=== PATIENT | female | born 1945 | race Caucasian/White ===

== ENCOUNTER 2017-05-05 08:33 | Outpatient (CLI) | payer MEDICARE ==
--- NOTE | 2017-05-05 11:34 | RAD ---
CERVICAL SPINE SERIES 6 VIEWS WITH FLEXION AND EXTENSION: Date: 05/05/17 HISTORY: neck pain. FINDINGS: The vertebral bodies are normal in height. Degenerative osteophytes are seen along the course of the lower cervical spine. There is disc narrowing at the C6-7 level. In flexion, there is very minimal anterolisthesis of C4 on C5 and C3 on C4, which reduces in extension. IMPRESSION: Arthritic changes of the spine as discussed above. POS: [facility]
--- NOTE | 2017-05-05 13:40 | MRI ---
MRI CERVICAL SPINE WITHOUT CONTRAST: Date: 05/05/17 HISTORY: Cervical radiculopathy. Neck pain. Radiation down left arm. COMPARISON: None. TECHNIQUE: Cervical spine MRI is performed without contrast administration. Multisequential, multiplanar imagin g is performed. FINDINGS: Appropriate T1 marrow signal intensity of the cervical vertebra. Cervical spine vertebral body heigh t is maintained. No fracture. No significant STIR hyperintensities to suggest edema or ligamentous i njury. Visualized brain parenchyma, cervicomedullary junction, cervical cord, and the upper thoracic cord h ave a normal size and signal intensity. C2-C3: No significant disc osteophyte complex. No significant central canal stenosis. Neural foramina paten t. C3-C4: No significant disc osteophyte complex. No significant central canal stenosis. Mild right foraminal narrowing. Left foramen is patent. C4-C5: No significant disc osteophyte complex. No significant central canal stenosis. Mild right foraminal narrowing. Left neural foramen is patent. C5-C6: Broad based disc osteophyte complex with a right paracentral component. Mild deformity of the right hemicord, without T2 hyperintensity in the cord. No significant central canal stenosis. Neural fady richie patent. C6-C7: Broad based disc osteophyte complex abuts the thecal sac. Ventral subarachnoid space is effaced. No significant mass effect upon the cervical cord. Mild right foraminal narrowing. Left foramen is garcia nt. C7-T1: No significant disc osteophyte complex. No significant central canal stenosis. Neural foramina paten t. UPPER THORACIC SPINE: No high grade central canal stenosis or high grade foraminal narrowing. IMPRESSION: Degenerative changes of the cervical spine as above. POS: [facility]
== END 2017-05-05 08:34 | disposition home or self-care (01) ==
LOC: TBSIIMAG 08:33
PROVIDERS: ATTEND Surgery
DX: M47.22 Other spondylosis with radiculopathy, cervical region (principal); M46.92 Unspecified inflammatory spondylopathy, cervical region
CPT/HCPCS: 72050; 72141

== ENCOUNTER 2017-09-02 11:31 | Outpatient (CLI) | payer MEDICARE ==
[2017-09-02 13:41] LABS: Hemoglobin 13.8 g/dL (12.0-16.0); Mean Corpuscular HGB CONC 31.9 g/dL (32.0-36.0); Mean Corpuscular Hemoglobin 29.4 pg (27.0-31.0); Mean Corpuscular Volume 92.2 fl (81.0-99.0); Mean Platelet Volume 9.3 fL (7.4-10.4); Platelet Count 201 thou/uL (130-400); RBC Distribution Width 12.7 % (11.5-14.5); Red Blood Cell (RBC) Count 4.69 mill/uL (4.20-5.40); White Blood Cell (WBC) Count 10.4 thou/uL (4.8-10.8)
[2017-09-02 13:50] LABS: PTT 28.8 SEC (22.9-36.1)
[2017-09-02 14:24] LABS: Anion Gap 12 mmol/L (10-20); BUN (Urea Nitrogen) 14 mg/dL (9.8-20.1); Calc. Creatinine Clearance 0 mL/min (70-130); Calcium 9.8 mg/dL (7.8-10.44); Carbon Dioxide 32 mmol/L (23-31); Chloride 98 mmol/L (98-107); Estimated GFR-MDRD 74; Glucose 285 mg/dL (80-115); Potassium 3.9 mmol/L (3.5-5.1); Sodium 138 mmol/L (136-145)
--- NOTE | 2017-09-02 16:08 | EKG ---
Test Reason : Blood Pressure : / mmHG Vent. Rate : 058 BPM Atrial Rate : 058 BPM P-R Int : 166 ms QRS Dur : 090 ms QT Int : 414 ms P-R-T Axes : 061 029 064 degrees QTc Int : 406 ms Sinus bradycardia Abberant conduction ST elevation, consider early repolarization Otherwise normal ECG Confirmed by TED ANN ([id number]) on 09/02/2017 4:08:19 PM Referred By: BEAU Confirmed By:TED ANN
== END 2017-09-02 11:32 | disposition home or self-care (01) ==
LOC: LABBT 11:31
PROVIDERS: ATTEND Surgery
DX: Z01.818 Encounter for other preprocedural examination (principal); M48.02 Spinal stenosis, cervical region; M54.12 Radiculopathy, cervical region
CPT/HCPCS: 80048; 85027; 85610; 85730; 93005; 93010

== ENCOUNTER 2017-09-11 05:58 | Day surgery (SDC) | payer MEDICARE ==
[2017-09-02 11:57] VITALS: BMI 25.0
[2017-09-11] MEDS ORDERED: Bacitracin Zinc Ointment 30 gm TUBE ONE (06:30)
[2017-09-11] MEDS ORDERED: Thrombin 5000 UNITS/5 ML VIAL ONE (06:30)
[2017-09-11] MEDS ORDERED: Sodium Chloride 0.9% 10 ML ONE (06:30)
[2017-09-11] MEDS ORDERED: CEFAZOLIN/Water 2 GM/20 ML SYRINGE ONE (06:38)
[2017-09-11] MEDS ORDERED: Ondansetron HCl/PF 4 MG/2 ML Vial ONE (06:38)
[2017-09-11] MEDS ORDERED: Fentanyl 250 MCG/5 ML VIAL ONE (07:14)
[2017-09-11] MEDS ORDERED: Acetaminophen/Codeine 30-300mg Tablet PO PRN (09:42)
[2017-09-11] MEDS ORDERED: Ondansetron HCl/PF 4 MG/2 ML Vial IVP PRN (09:42)
[2017-09-11] MEDS ORDERED: Milk Of Magnesia 30 ML UDCUP PO PRN (09:42)
[2017-09-11] MEDS ORDERED: Bisacodyl 10 MG SUPP PR PRN (09:42)
[2017-09-11] MEDS ORDERED: traMADol HCl 50 MG TAB PO PRN (09:42)
[2017-09-11] MEDS ORDERED: Fleet Enema 133 ML BOT PR PRN (09:42)
[2017-09-11] MEDS ORDERED: Promethazine HCl 25 MG/ML VIAL IM PRN (09:42)
[2017-09-11] MEDS ORDERED: Acetaminophen 325 MG TAB PO PRN (09:42)
[2017-09-11] MEDS ORDERED: Mag-Al 1200 mg/1200 mg/30 ML UDCUP PO PRN (09:42)
--- NOTE | 2017-09-11 10:17 | OP ---
OR: 11 WOUND TYPE: Type 1 wound. SURGEON: Mj Hankins M.D. RECYCLING MANAGER: Syed Amador PA-C. PREPROCEDURE DIAGNOSES: Left C8 radiculopathy with neck and left arm pain C8 distribution. POSTPROCEDURE DIAGNOSES: Left C8 radiculopathy with neck and left arm pain C8 distribution. PROCEDURE: Left C7-T1 hemilaminotomy, foraminotomy over the left C8 nerve root and exploration of th e disk space with decompression of left C8 nerve root. DESCRIPTION OF PROCEDURE: After informed consent was obtained from the patient, the patient brought to OR 11. Proper patient pause identification was carried out. She was placed under excellent endot lottie anesthesia. Schultz zev was secured to her skull and she was positioned prone on the ope rating table. All appropriate points were padded. An incision was drawn out over the C7-T1 segment. This region was sterilely cleansed, prepared, and draped. Proper patient pause and identification was carried out. The wound was then opened with a combination of sharp, monopolar, and blunt dissect ion. We exposed the left C7-T1 segment and localization film confirmed our area of interest. We the n performed a left C8 foraminotomy and left C7-T1 hemilaminotomy with excellent decompression of left C8 nerve root. I worked in the axilla of the left C8 nerve root identify any disk material, but not needed to be removed with excellent decompression of the nerve root. Copious irrigation occurred th roughout as did hemostasis. We then closed the wound in anatomic layers following the sprinkling of vancomycin powder. The patient then emerged from anesthesia.
[2017-09-11] MEDS: Meperidine HCl/PF 25 MG/ML VIAL SLOW IVP PRN ×2 (11:48→16:31)
[2017-09-11] MEDS: tiZANidine HCl 4 MG TAB PO PRN ×2 (12:51→20:39)
[2017-09-11] MEDS: HYDROcodone/Acetaminophen 7.5/325 mg Tablet PO PRN (12:51)
[2017-09-11] MEDS: Sodium Chloride 0.9% 1,000 ML IV SCH ×2 (12:52→20:35)
[2017-09-11] MEDS: CEFAZOLIN/Water 2 GM/20 ML SYRINGE SLOW IVP SCH ×2 (14:02→20:33)
[2017-09-11] MEDS ORDERED: Cepastat Lozenges 1 LOZ PO PRN (15:57)
[2017-09-11] MEDS ORDERED: Insulin Detemir 100 UNITS/ML 60 UNITS in Pre-Filled Syringe 1 EACH SC SCH (21:00)
[2017-09-11] MEDS ORDERED: LEVEMIR 60 UNIT SQ SCH (21:00)
[2017-09-12] MEDS: tiZANidine HCl 4 MG TAB PO PRN (02:46)
[2017-09-12] MEDS: HYDROcodone/Acetaminophen 7.5/325 mg Tablet PO PRN ×2 (02:46→06:32)
[2017-09-12] MEDS ORDERED: Levothyroxine Sodium 25 MCG TAB PO SCH (06:00)
[2017-09-12 07:58] VITALS: BP 95/61
[2017-09-12] MEDS: Sodium Chloride 0.9% 1,000 ML IV SCH (08:07)
--- NOTE | 2017-09-12 08:15 | PRG ---
DATE OF SERVICE: 09/12/2017 Ms. Pink is postoperative day 1 from left C7-T1 hemilaminotomy, foraminotomy of the left C8 nerve keagan t. She has had resolution in her left arm pain with just a very trace paresthesia in the left fifth digit. Otherwise, she is doing very well. She has met criteria for dismissal with good strength in her upper extremities. No issues with her wound. We will plan for dismissal. We went over intra an d postoperative issues.
[2017-09-12 08:21] VITALS: TEMP 98.4
[2017-09-12] MEDS ORDERED: Losartan/Hydrochlorothiazide 100 mg/25 mg Tablet PO SCH (09:00)
[2017-09-12] MEDS ORDERED: Ascorbic Acid 500 mg Chewable Tablet PO SCH (09:00)
[2017-09-12] MEDS ORDERED: Vitami E (Dl,Tocopheryl Acet) 400 UNITS CAP PO SCH (09:00)
[2017-09-12] MEDS ORDERED: UBIDECARENONE PO SCH (09:00)
[2017-09-12] MEDS ORDERED: VITAMIN E MIXED PO SCH (09:00)
[2017-09-12] MEDS ORDERED: [UNRECOGNIZED DRUG - OTHER] PO SCH (09:00)
[2017-09-12] MEDS ORDERED: Pregabalin 50 MG CAP PO SCH (09:00)
[2017-09-12] MEDS ORDERED: Atenolol 25 MG TAB PO SCH (09:00)
== END 2017-09-12 10:00 | disposition home or self-care (01) ==
LOC: SDC 05:58 → SURG A 09:42 → SDC 09-12 10:00
PROVIDERS: ATTEND Surgery
PROC: 01N10ZZ Release Cervical Nerve, Open Approach (ICD-10-PCS; principal; 2017-09-11)
DX: M54.12 Radiculopathy, cervical region (principal); M48.02 Spinal stenosis, cervical region; Z88.5 Allergy status to narcotic agent; Z91.040 Latex allergy status; Z88.8 Allergy status to other drugs, medicaments and biological substances
CPT/HCPCS: 36416; 76001; A4216; J2175; J2405; J3010; J3370; J3490

== ENCOUNTER 2021-08-03 13:06 | Outpatient (CLI) | payer MEDICARE | END 2021-08-03 13:07 | disposition home or self-care (01) | LOC: TBSIIMAG 13:06 | PROVIDERS: ATTEND Surgery | DX: M48.062 Spinal stenosis, lumbar region with neurogenic claudication (principal); M47.816 Spondylosis without myelopathy or radiculopathy, lumbar region | CPT/HCPCS: 72148 ==

== ENCOUNTER 2021-08-03 14:27 | Outpatient (CLI) | payer MEDICARE | END 2021-08-03 14:28 | disposition home or self-care (01) | LOC: TBSIIMAG 14:27 | PROVIDERS: ATTEND Surgery | DX: M48.062 Spinal stenosis, lumbar region with neurogenic claudication (principal); M54.30 Sciatica, unspecified side; M47.816 Spondylosis without myelopathy or radiculopathy, lumbar region | CPT/HCPCS: 72100 ==